=== PATIENT | female | born 1975 | race Caucasian/White ===

== ENCOUNTER 2023-01-09 21:10 | Emergency (ER) | payer OTHER, SELFPAY ==
[2023-01-09 21:11] VITALS: BP 148/89; PULSE 90; RESP 18; TEMP 36.1; O2SAT 100; BMI 25.8
--- NOTE | 2023-01-10 00:31 | ED.EYEPROB ---
HPI - Eye Problem General Chief complaint: Eye Problems Stated complaint: redness and burning in eyes Time Seen by Provider: 01/10/23 00:08 Source: patient and family (Daughter) Mode of arrival: ambulatory Limitations: language barrier (Patient speaks Albanian, asl interpreter used) History of Present Illness HPI Narrative: 47-year-old female who presents emergency department for evaluation of redness and itchiness of her left eye. She states that the symptoms started approximately 3 hours prior to coming to the emergency department she noticed redness and left eye. She denied fever, chills, rhinorrhea, cough, chest pain, shortness of breath, blurred vision Related Data Allergies Allergy/AdvReac Type Severity Reaction Status Date / Time No Known Allergies Allergy Unverified 05/18/20 19:00 [No Known Allergies*] Review of Systems Review of Systems: Yes all other systems are reviewed and are negative [facility] Past Medical History [facility] Narrative: Past medical history: Neck pain-is getting physical therapy for this. Social History Social History Advance Directives: No Advance Directives Information Provided: No Physical Exam Vital Signs: Vital Signs: Last Vital Signs Temp 97 F 01/09/23 21:11 Pulse 90 01/09/23 21:11 Resp 18 01/09/23 21:11 BP 148/89 H 01/09/23 21:11 Pulse Ox 100 01/09/23 21:11 O2 Del Method Room Air 01/09/23 21:11 BMI result Body Mass Index 25.8 Vital signs revealed an elevated blood pressure of 148/89 General: Awake, alert, female patient, very pleasant cooperative, no distress HEENT exam: Head was normal cephalic and atraumatic, pupils were equal round reactive light, left eye: Medial scleral subconjunctival hemorrhage which abuts the cornea. Fluorescein dye and Wood's lamp examination revealed no corneal abrasions. Extraocular muscles are intact. No rhinorrhea, mouth revealed moist membranes with no erythema or exudate Neck: Supple with no adenopathy Medical Decision Making Medical Decision Making MDM Narrative: 47-year-old female who presents with redness and itchiness to the left eye. Examination is consistent with a left eye medial scleral subconjunctival hemorrhage which abuts the cornea. There was no corneal abrasions seen on fluorescein dye and Wood's lamp examination. The patient was advised use natural tears ever 2 drops every hour while she is awake. She was given printed and verbal instructions discharged home Differential Diagnosis Differential diagnosis includes but is not limited to subconjunctival hemorrhage, allergic rhinitis, corneal abrasion Independent Historian Clinical information obtained from an independent historian. History obtained from or confirmed by: Other (Daughter) Discharge Plan Discharge Clinical Impression: Scleral hemorrhage of left eye Patient Disposition: Home, Self-Care Instructions: Subconjunctival Hemorrhage (ED) Additional Instructions: You have bleeding of the white part of your eye this is called a subconjunctival or scleral hemorrhage. A scleral hemorrhage can sometimes block tear that come out of your tear duct which then causes your eye to dry out and this causes itchiness. The treatment is to use natural tear eyedrops, 2 drops in your left eye every hour while you are awake and that should help with the itchiness. Ask the pharmacist for recommendation for which tear drop to you, there is a brand call Natural Tears but you can by the generic brand Your I will eventually reabsorbed ball of the blood but this sometimes takes 2-3 weeks. The fluorescein dye test did not reveal any scratch to your cornea which is reassuring. Follow-up with your doctor in 2 days. Please return to the emergency department if your symptoms get worse or if you develop any symptoms that are concerning to you.
[2023-01-10] MEDS: Fluorescein Sodium STRIP 1 STRIP EYE-LEFT (00:39)
== END 2023-01-10 00:38 | disposition home or self-care (01) ==
PROVIDERS: Emergency Provider Emergency Medicine Emergency Medical Services; PCP Family Medicine
DX: H57.89 Other specified disorders of eye and adnexa (principal); H57.12 Ocular pain, left eye
CPT/HCPCS: 99282; 99283

== ENCOUNTER 2023-07-14 14:30 | Emergency (ER) | payer OTHER, SELFPAY ==
--- NOTE | 2023-07-14 14:47 | ED_ITS ---
HPI - General Adult General Chief complaint: Upper Respiratory Symptoms Stated complaint: Covid shot yest-diff breathing sore throat Time Seen by Provider: 07/14/23 15:06 Source: patient and tank hoop bender (English tank hoop bender through [employer]) Mode of arrival: ambulatory Limitations: language barrier History of Present Illness HPI narrative: 48-year-old female with a history of GERD presents to the ER with complaints of scratchy, itchy throat with cough, wheezing, difficulty breathing, itching of the face after receiving her COVID and flu vaccine yesterday. She has not tried taking any [id number] medication. She denies chest pain, abdominal cramping, vomiting, diarrhea, skin rash. Related Data Previous Rx's Medication Instructions Recorded diphenhydramine HCl 25 mg capsule 25 mg PO TID PRN allergic reaction 07/14/23 (Benadryl) #20 caps loratadine 10 mg tablet (Claritin) 10 mg PO DAILY PRN allergic 07/14/23 symptoms #30 tabs olopatadine 0.2 % eye drops 2 drp ophthalmic (eye) DAILY PRN 07/14/23 (Pataday Once Daily Relief) itching #2.5 mL Allergies Allergy/AdvReac Type Severity Reaction Status Date / Time No Known Allergies Allergy Unverified 05/18/20 19:00 [No Known Allergies*] Review of Systems 2 Review of Systems: Yes all other systems are reviewed and are negative Constitutional: Constitutional: Reports no additional constitutional complaints, Denies body ache(s), Denies chills, Denies fever(s), Denies headache(s) and Denies weakness Eyes: Eyes: Reports no additional eye complaints, Denies change in vision, Reports eye discharge and Reports irritation ENT: Reports system reviewed and no additional complaints, except as documented, Denies dizziness, Denies headache(s), Denies nasal congestion, Denies nasal discharge, Denies neck pain and Reports sinus pain Cardiovascular: Cardiovascular: Reports no additional cardiovascular complaints, Denies chest pain, Denies leg edema and Reports dyspnea Respiratory: Respiratory: Reports no additional respiratory complaints, Reports cough, Reports dyspnea and Reports wheezing Gastrointestinal: Gastrointestinal: Reports no additional gastrointestinal complaints, Denies abdominal pain, Denies diarrhea, Denies nausea and Denies vomiting Genitourinary: Genitourinary: Reports no additional female genitourinary complaints and Denies urinary incontinence Musculoskeletal: Musculoskeletal: Reports no additional musculoskeletal complaints, Denies back pain, Denies arthralgias, Denies joint swelling, Denies neck pain, Denies numbness and Denies tingling Integumentary/Breasts: Skin/Breast: Reports system reviewed and no additional complaints, except as docu and Denies rash Neurologic: Reports system reviewed and no additional complaints, except as documented, Denies Abnormal speech present, Denies dizziness, Denies headache(s), Denies numbness, Denies tingling and Denies weakness Allergic/Immunologic: Allergic/Immunologic: Reports wheezing [facility] Past Medical History Attestation statement: The following information was validated with the patient. Source: old records reviewed and nursing notes reviewed Social History Social History Advance Directives: No Advance Directives Information Provided: No Physical Exam ED Vital Signs: Vital Signs - 24 hr 07/14/23 14:50 07/14/23 16:10 Temperature 98.2 F Pulse Rate 104 H 90 Respiratory Rate 18 Blood Pressure 185/100 H 165/86 H Pulse Oximetry 99 Oxygen Delivery Method Room Air BMI result Body Mass Index 31.1 Const General: cooperative, healthy appearing, comfortable and no acute distress Orientation/consciousness: patient oriented x3 Limitations: no limitations HENMT Other: No stridor Head: Yes normal to inspection Ears: hearing grossly normal bilaterally General nose exam: Normal external nose present Face and sinus: Yes normal facial exam Mouth: Normal oral and palatal mucosa present, lip normal and tongue normal Throat: Yes posterior oropharynx normal, Yes tonsils normal and Yes uvula midline Eyes General: appearance normal, both eyes and all related structures Pupils: Equal, round and reactive pupils present Neck Neck: Yes normal visual inspection Chest Chest palpation & inspection: normal inspection of the chest Resp Effort & Inspection: normal respiratory effort Auscultation: clear to auscultation bilaterally Cardio Rate: regular rate Rhythm: regular rhythm Peripheral pulses: Peripheral pulses 2+ throughout GI Inspection: Yes normal to inspection Palpation (GI): Soft to palpation and nontender Auscultation: normal bowel sounds Back/Spine/Pelvis Thoracic/Lumbar Spine: thoracic and lumbar spine normal to inspection Skin General skin exam: no rashes or lesions noted Neuro General: patient oriented x3, no focal motor deficits and normal sensation to monofilament Cranial nerves: Yes Equal, round and reactive pupils present Cognition (Neuro): normal cognition Speech: No Abnormal speech present Gait exam (Neuro): Normal gait present Motor exam (neuro): 5/5 motor strength present throughout Extrem General: Yes normal to inspection, Yes no pedal edema and Yes no calf tenderness Course Course Course Narrative: RME performed by Anju Fountain PA-C. Patient is a 48 year old assigned female at presenting to the emergency department with feeling generally unwell after receiving the COVID-19 and influenza vaccines. Labs and swabs ordered. Patient placed back in the waiting room pending room availability and results. Medical Decision Making Medical Decision Making MDM Narrative: 48-year-old female with a history of GERD presents to the ER with complaints of scratchy, itchy throat with cough, wheezing, difficulty breathing, itching of the face after receiving her COVID and flu vaccine yesterday. She has not tried taking any [id number] medication. She denies chest pain, abdominal cramping, vomiting, diarrhea, skin rash. LS CTA. No angioedema or facial swelling noted. Posterior oropharynx normal ?allergy reaction vs viral syndrome BP mildly elevated-improved on my exam-asymptomatic Will review labs, UA, viral testing from triage Differential Diagnosis Differential Diagnoses: The differential diagnosis associated with the presentation includes Viral syndrome allergic reaction Admission/Observation Consideration of admission/observation: Escalation of care including admission/observation considered no angioedema or facial swelling requiring IV medications or epinephrine and for admission or observation Lab Data [facility] Lab Attestation statement: I reviewed the patient's lab results. urine is contaminated 07/14/23 15:26 07/14/23 15:26 Labs: Lab Results 07/14/23 07/14/23 07/14/23 Range/Units 15:17 15:26 15:27 WBC 5.7 (4.8-10.8) X10*3/uL RBC 5.34 (4.20-5.50) X10*6/uL Hgb 11.7 L (12.0-16.0) g/dl Hct 37.3 (37.0-47.0) % MCV 69.9 L (80.0-98.0) fL MCH 21.9 L (27.0-33.0) pg MCHC 31.4 (31.0-35.0) g/dl RDW 18.0 H (11.0-16.0) % Plt Count 209 (160-400) X10*3/uL MPV 9.9 (9.4-12.3) fL Immature Gran % (Auto) 0.2 (0.0-0.4) % Neut % (Auto) 71.2 (45-73) % Lymph % (Auto) 19.7 L (20-40) % [place] % (Auto) 7.0 (2-11) % Eos % (Auto) 1.4 (0-4) % Baso % (Auto) 0.5 (0-2) % Lymph # (Auto) 1.1 L (1.2-4.9) X10*3/uL [place] # (Auto) 0.4 (0.1-1.2) X10*3/uL Eos # (Auto) 0.1 (0.0-0.4) X10*3/uL Baso # (Auto) 0.0 (0.0-0.2) X10*3/uL Abs Immat Gran (auto) 0.01 (0.00-0.03) X10*3/uL Absolute Neuts (auto) 4.0 (2.0-8.3) x10*3/uL Absolute Nucleated RBC 0.000 (0.0-0.012) X10*3/uL Nucleated RBC % (auto) 0.0 (0.0-0.2) /100WBC Sodium 140 (135-145) mmol/L Potassium 4.3 (3.3-5.1) mmol/L Chloride 103 (96-108) mmol/L Carbon Dioxide 29 (22-29) mmol/L Anion Gap 12 (12-20) BUN 8 L (9-16) mg/dL Creatinine 0.75 (0.5-1.4) mg/dL Estim Creat Clear Calc 92.8 Estimated GFR > 60 Random Glucose 92 (60-115) mg/dL Calcium 9.2 (8.4-10.2) mg/dL Magnesium 2.1 (1.6-2.6) mg/dL Total Bilirubin 0.3 (0.0-1.0) mg/dL AST 27 (5-31) U/L ALT 29 (0-31) U/L Alkaline Phosphatase 80 (39-117) U/L Total Protein 8.1 H (6.5-8.0) g/dL Albumin 4.5 (3.5-5.0) g/dL Urine Color Yellow Urine Appearance Clear Urine pH 7.5 (5.0-9.0) Ur Specific [place] 1.020 (1.005-1.025) Urine Protein Negative (Neg-Trace) mg/dL Urine Glucose (UA) Negative (Negative) mg/dL Urine Ketones Negative (Negative) mg/dL Urine Blood Negative (Negative) Urine Nitrite Negative (Negative) Ur Leukocyte Esterase Small (1+) H (Negative) Urine RBC 6-10 H (0-2) /HPF Urine WBC 6-10 H (0-5) /HPF Ur Squamous Epith Cells 6-10 (0-2) /HPF Urine Bacteria None Seen (None Seen) Hyaline Casts 0-2 (0-2) /LPF Influenza Type A (PCR) NEGATIVE (Negative) Influenza Type B (PCR) NEGATIVE (Negative) RSV RNA Qual (PCR) NEGATIVE (Negative) SARS-CoV-2 RNA (RT-PCR) NEGATIVE (Negative) S. pyogenes GrpA KAYLIE Negative (Negative) Independent Historian Clinical information obtained from an independent historian. History obtained from or confirmed by: Other ( son) Discharge Plan Discharge Clinical Impression: Allergic reaction Patient Disposition: Home, Self-Care Instructions: General Allergic Reaction (ED) Prescriptions: New olopatadine [Pataday Once Daily Relief] 0.2 % drops 2 drp ophthalmic (eye) DAILY PRN (Reason: itching) Qty: 2.5 0RF loratadine [Claritin] 10 mg tablet 10 mg PO DAILY PRN (Reason: allergic symptoms) Qty: 30 0RF diphenhydramine HCl [Benadryl] 25 mg capsule 25 mg PO TID PRN (Reason: allergic reaction) Qty: 20 0RF Interventions: ED Discharge Assessment Last Done: 07/14/23 16:35 Discharge Date/Time: 07/14/23 16:35
[2023-07-14 14:50] VITALS: BP 185/100; PULSE 104; RESP 18; TEMP 36.8; O2SAT 99; BMI 31.1
[2023-07-14 15:25] LABS: Appearance Urine Clear; Color Urine Yellow; Glucose Urine UA Negative (Negative); Leukocyte Esterase Urine Small (1+) (Negative); Nitrite Urine Negative (Negative); PH 7.5 (5.0-9.0); UMIC TRIGGER UACC YES; Urine Blood Negative (Negative); Urine Ketones Negative (Negative); Urine Protein Negative (Neg-Trace)
[2023-07-14 15:34] LABS: Bacteria Urine None Seen (None Seen); Hyaline Casts Urine 0-2 /LPF (0-2); UACC Culture Trigger YES
[2023-07-14 15:42] LABS: Basophils Percent Auto 0.5 % (0-2); Eosinophils Absolute Auto 0.1 X10*3/uL (0.0-0.4); Eosinophils Percent Auto 1.4 % (0-4); Hematocrit 37.3 % (37.0-47.0); Hemoglobin 11.7 g/dl (12.0-16.0); Imm Gran Abs Auto 0.01 X10*3/uL (0.00-0.03); Imm Gran Pct Auto 0.2 % (0.0-0.4); Lymphocytes Absolute Auto 1.1 X10*3/uL (1.2-4.9); Lymphocytes Percent Auto 19.7 % (20-40); MANUAL DIFF FLAG SCAN; Mean Corpuscular HGB Conc 31.4 g/dl (31.0-35.0); Mean Corpuscular Hemoglobin 21.9 pg (27.0-33.0); Mean Corpuscular Volume 69.9 fL (80.0-98.0); Mean Platelet Volume 9.9 fL (9.4-12.3); Monocytes Absolute Auto 0.4 X10*3/uL (0.1-1.2); Neutrophils Percent Auto 71.2 % (45-73); Platelet Count 209 X10*3/uL (160-400); Red Blood Count 5.34 X10*6/uL (4.20-5.50); SCAN SMEAR FLAG 1; White Blood Count 5.7 X10*3/uL (4.8-10.8)
[2023-07-14 15:43] LABS: PLT ABN DIST 1
[2023-07-14 15:53] LABS: IDNOW Serial# 08D9AD1C; Strep A Nucleic Acid Negative (Negative)
[2023-07-14 15:56] LABS: Alanine Aminotransferase 29 U/L (0-31); Albumin Level 4.5 g/dL (3.5-5.0); Alkaline Phosphatase 80 U/L (39-117); Anion Gap 12 (12-20); Aspartate Amino Transferase 27 U/L (5-31); Bilirubin Total 0.3 mg/dL (0.0-1.0); Blood Urea Nitrogen 8 mg/dL (9-16); Calcium 9.2 mg/dL (8.4-10.2); Carbon Dioxide 29 mmol/L (22-29); Chloride 103 mmol/L (96-108); Creatinine Clr Calc Pharmacy 92.8; Estimated Glomerular Filt Rate > 60; Glucose Random 92 mg/dL (60-115); Magnesium 2.1 mg/dL (1.6-2.6); Potassium 4.3 mmol/L (3.3-5.1); Sodium 140 mmol/L (135-145); Total Protein 8.1 g/dL (6.5-8.0)
[2023-07-14 16:10] VITALS: BP 165/86; PULSE 90
[2023-07-14 16:37] LABS: Influenza A PCR NEGATIVE (Negative); Influenza B PCR NEGATIVE (Negative); Resp Syncy Virus RNA Qual PCR NEGATIVE (Negative); SARS COV2 PCR INHOUSE NEGATIVE (Negative)
[2023-07-14 16:43] LABS: SLIDE REVIEW VERIFIED
== END 2023-07-14 16:35 | disposition home or self-care (01) ==
PROVIDERS: Physician Assistant Medical; Emergency Provider Emergency Medicine Emergency Medical Services; PCP Family Medicine
DX: T78.40XA Allergy, unspecified, initial encounter (principal); X58.XXXA Exposure to other specified factors, initial encounter; L29.9 Pruritus, unspecified; R06.2 Wheezing; R06.00 Dyspnea, unspecified; R05.9 Cough, unspecified; Z20.822 Contact with and (suspected) exposure to COVID-19; Z20.828 Contact with and (suspected) exposure to other viral communicable diseases
CPT/HCPCS: 0241U; 80053; 81001; 83735; 85025; 87086; 87147; 87651; 99283